=== PATIENT | female | born 1980 | race African-American/Black ===

== ENCOUNTER 2024-08-24 11:45 | Inpatient (IN) ==
--- NOTE | 2024-08-24 14:20 | XRay Report ---
XR chest 1V not portable CLINICAL HISTORY: Chest pain, nonspecific COMPARISON STUDY: 08/09/2024 FINDINGS: Heart size and pulmonary vasculature are normal. There is interval opacity at the left base with obscuration of the left hemidiaphragm. No pneumothorax. IMPRESSION: Left lung base opacity could represent atelectasis, pneumonia, or small pleural effusion . ACT 112: Negative or not required by law. Electronically signed by: Jabier Galicia M.D. 08/24/2024 2:19 PM
[2024-08-24 14:22] LABS: Basophils # (auto) 0.04 K/uL (0.00-0.20); Basophils % (auto) 0.2 %; Eosinophils % (auto) 0.6 %; Hematocrit (blood only) 29.1 % (37.0-47.0); Hemoglobin 8.5 g/dl (12.0-16.0); Immature Granulocytes # (auto) 0.09 K/uL (0.01-0.20); Immature Granulocytes % (auto) 0.5 %; Lymphocytes # (auto) 2.27 K/uL (1.20-3.40); Lymphocytes % (auto) 12.6 %; Mean Corpuscular Hemoglobin 22.9 pg (25.0-34.0); Mean Corpuscular Hgb Conc 29.2 g/dL (32.0-36.0); Mean Corpuscular Volume 78.4 fL (80.0-100.0); Mean Platelet Volume 8.5 fL (9.4-12.4); Monocytes # (auto) 1.11 K/uL (0.11-0.59); Monocytes % (auto) 6.1 %; Neutrophils # (auto) 14.45 K/uL (1.40-6.50); Platelet Count 475 K/uL (130-400); RDW Coefficient of Variation 21.4 % (11.5-14.5); RDW Standard Deviation 60.9 fL (36.4-46.3); Red Blood Count 3.71 M/uL (4.20-5.40); White Blood Count 18.06 K/ul (4.8-10.8)
--- NOTE | 2024-08-24 14:28 | Emergency Department Note ---
Impression & Plan Left lower lobe pneumonia, Anemia, Acute dyspnea ED Provider Note NAME: ANNE MARIE JONES AGE: 44 SEX: F : 1980 ARRIVES VIA: Ambulance INFORMANT: Patient, son, Valeriy ED PROVIDER(S): Michael Garcia MD CHIEF COMPLAINT: Shortness of breath, outpatient referral, flulike symptoms MEDICAL DECISION MAKING: Patient presents for the above. IV was established and blood work was obtained along with EKG troponin and x-ray. Patient's x-ray with left lower lobe pneumonia white count of 18. Patient was started on Zosyn and CT angiography performed in light of the patient's Norethin 100 and use and shortness of breath with tachypnea and tachycardia. Patient did have blood cultures obtained along with a lactate. IV fluids ordered. Patient CT angiography of the chest does not show evidence of obvious PE. I did [place] with the patient's outpatient provider who she saw today. He reported no hypoxia but the patient was very tachypneic. Given the patient's after mentioned symptoms with associated anemia likely complicates her shortness of breath and the fact that she has had symptoms for 2 weeks without treatment to believe the patient would benefit from inpatient treatment in light of the patient's tachypnea tachycardia and overall symptoms. Patient was informed the findings and recommendations and was agreeable plan of care. I did speak the on-call hospital service Dr. Cordoba and the patient was admitted to the medicine service. Lactate normal. Discussion w/ other healthcare providers: Valeriy Elizondo, outpatient medicine service Dr. Cordoba inpatient medicine service Prior /Outside records reviewed: I reviewed part of a primary care visit from Valeriy Rob or from earlier today. Patient with known history of DUB alpha thalassemia cough and dyspnea. Patient presenting with reported flulike symptoms. No reported hypoxia but was reportedly tachypneic with elevated heart rate. I reviewed part of a hematology oncology note from Dr. Rolon from December 2023. Patient with known history of microcytic anemia likely multifactorial secondary to alpha thalassemia and iron deficiency. Hemoglobin of 8.4 from October 2023. Differential diagnosis: Reactive airway disease, pneumonia, pneumothorax, COPD, CHF, ACS, pulmonary embolism, musculoskeletal, GERD as well as other pathologies were considered. Diagnostics, as interpreted by me: ECG: Sinus tachycardia, rate of 113, normal intervals, normal axis T wave version lead III as well as in V3. No obvious STEMI. Possible slight depressions V3 and V4. Cardiac monitoring: An order was placed for continuous cardiac monitoring. The monitor shows a rate of 112 with tachycardic and regular rhythm. Patient was placed on pulse oximetry Medical decision rules: none Imaging studies: I informally interpreted the patient's chest x-ray with left lower lobe opacity with formal report to follow. HPI: Patient presents due to concern for worsening shortness of breath. Patient reports that this began after having a blood transfusion and iron infusion completed about 2 weeks prior. The patient describes which she states "or flulike symptoms." Patient states that she had some bodyaches and some cough. Cough has been productive with sputum. Non-smoker. Patient states that she has had issues with vaginal bleeding. Patient states that she is on a medication to try to help stop that. Review of the patient's home medications show the patient is on orphenadrine. Patient states that she has been on that chronically. No current vaginal bleeding at this time. Patient denies any history of DVT or PE. No leg swelling or calf pain. No recent surgeries procedures hospitalizations or prolonged car plane travel. Patient states that she is quite thirsty. Patient was seen in clinic today and referred here for further evaluation and treatment due to increase in respiratory rate. Patient thinks that she may have been hypoxic. Patient was placed on nasal cannula in the clinic and states that this did improve her symptoms. PAST MEDICAL HISTORY: See Below PAST SURGICAL HISTORY: See Below SOCIAL HISTORY: See Below HOME MEDICATIONS: See Below ALLERGIES: See Below VITALS: See Below PHYSICAL EXAMINATION: GENERAL: NAD, non-toxic. EYE EXAM: Normal conjunctiva. PERRL, no anisocoria and EOM's grossly intact w/o pain. OROPHARYNX: Moist mucus membranes, grossly normal dentition. NECK: Trachea midline, no stridor. Supple, no nuchal rigidity, no adenopathy, non-tender. No signs of meningismus. FROM of the neck with good chin to chest and neck extension. LUNGS: Diminished sounds left base. Mild tachypnea. HEART: Tachycardic and regular, no MRG. ABDOMEN: Abdomen soft, non-tender, no masses, no rebound or guarding. BACK: No CVA TTP. SKIN: No rashes and no bruising. UPPER EXTREMITIES: Upper extremities are grossly normal. LOWER EXTREMITIES: Grossly normal, no edema. Negative Homans' sign bilaterally. NEURO EXAM: A&O x3, cranial nerves II-XII grossly intact, normal speech, moves all 4 extremities. Past Med/Surg History Problem List (Updated 08/25/24 @ 08:27 by Michael Garcia MD) Acute dyspnea (Acute) Left lower lobe pneumonia (Acute) Palpitations Obesity Axillary hidradenitis suppurativa Iron deficiency anemia (Acute) Type 2 diabetes mellitus Anemia (Acute) Heavy menses Medical History (Updated 08/25/24 @ 08:27 by Michael Garcia MD) Alpha thalassemia Dysfunctional uterine bleeding Surgical History H/O: H/O umbilical hernia repair Family History Grandmother (Maternal) Breast cancer Father Myocardial infarction Denies family history of Ovarian cancer Prostate cancer Colorectal cancer Social History Smoking Status: Never smoker Second Hand Exposure: No; Hx Alcohol Use: No Hx Substance Use: No Preferred Language: Irish Mask Design Engineer Required: No Beliefs That Will Affect Care: None marital status: Single Current Living Situation: Family current occupational status: employed How many Children do You have: 3 How many Children do You have Comment: plus foster child Feels Safe at Home: Yes Safety Concerns: Feels Safe At This Time Childhood Exposure to Second-Hand Smoke: No caffeine: Yes Dental Care, Regularly: Yes Seatbelt Use: always Assistive Devices: None Allergies Allergies Allergy/AdvReac Type Severity Reaction Status Date / Time morphine Allergy Mild Shakiness Verified 08/24/24 09:55 Home Meds Home Medications Medication Instructions Recorded Confirmed iron,carbonyl 65 mg-vitamin C 125 1 tab PO DAILY 08/09/24 08/24/24 mg tablet,delayed release (Vitron-C) Previous Rx's Medication Instructions Recorded blood-glucose meter,continuous #1 ea 12/23/23 (Dexcom G6 Bi Data Modeler) blood-glucose transmitter (Dexcom #1 ea 12/23/23 G6 Transmitter device) blood-glucose sensor (Dexcom G6 #3 ea 02/04/24 Sensor device) metformin 500 mg tablet,extended 1,000 mg (2 x 500 mg) PO BID #180 07/04/24 release 24 hr tabs norethindrone acetate 5 mg tablet 5 mg PO DAILY #90 tabs 08/21/24 Results & Data (ED) Vital Signs Vital Signs - 24 hr 08/24/24 11:50 08/24/24 12:59 08/24/24 13:01 Temperature 36.8 C Temperature Source Oral Pulse Rate 122 H Respiratory Rate 20 Respiratory Effort / Characteristics Non-Labored Spontaneous Respiratory Depth Normal Blood Pressure 136/76 Blood Pressure Mean 96 Pulse Oximetry 100 97 97 Oxygen Delivery Method Room Air Nasal Cannula Room Air Oxygen Flow Rate 2 Sepsis Recent Fever Within 48 Hours No Sepsis New/Unexplained Change in Mental Status N/A Sepsis Action Taken by Nursing No Action Required Oxygen Flow Rate - Titration 0 Pulse Oximetry Post Tiitration 97 08/24/24 16:42 Temperature Temperature Source Pulse Rate 107 H Respiratory Rate Respiratory Effort / Characteristics Respiratory Depth Blood Pressure Blood Pressure Mean Pulse Oximetry Oxygen Delivery Method Oxygen Flow Rate Sepsis Recent Fever Within 48 Hours Sepsis New/Unexplained Change in Mental Status Sepsis Action Taken by Nursing Oxygen Flow Rate - Titration Pulse Oximetry Post Tiitration Home Medications Current Medication List: was personally reviewed by me Laboratory Data Attestation: I reviewed the patient's lab results. 08/24/24 13:02 08/24/24 13:02 Lab Results 08/24/24 08/24/24 08/24/24 Range/Units 13:02 14:21 15:27 WBC 18.06 H (4.8-10.8) K/ul RBC 3.71 L (4.20-5.40) M/uL Hgb 8.5 L (12.0-16.0) g/dl Hct 29.1 L (37.0-47.0) % MCV 78.4 L (80.0-100.0) fL MCH 22.9 L (25.0-34.0) pg MCHC 29.2 L (32.0-36.0) g/dL RDW Std Deviation 60.9 H (36.4-46.3) fL RDW Coeff of Kamla 21.4 H (11.5-14.5) % Plt Count 475 H (130-400) K/uL MPV 8.5 L (9.4-12.4) fL Immature Gran % (Auto) 0.5 % Neut % (Auto) 80.0 % Lymph % (Auto) 12.6 % Rapides % (Auto) 6.1 % Eos % (Auto) 0.6 % Baso % (Auto) 0.2 % Neut # (Auto) 14.45 H (1.40-6.50) K/uL Lymph # (Auto) 2.27 (1.20-3.40) K/uL Rapides # (Auto) 1.11 H (0.11-0.59) K/uL Eos # (Auto) 0.10 (0.00-0.50) K/uL Baso # (Auto) 0.04 (0.00-0.20) K/uL Immature Gran # (Auto) 0.09 (0.01-0.20) K/uL Hypochromasia Present Anisocytosis Present PT Cancelled 11.5 INR Cancelled 1.1 APTT Cancelled 29 PTT Ratio Cancelled 1.1 Sodium 140 (136-145) mmol/L Potassium 3.6 (3.5-5.1) mmol/L Chloride 105 (98-107) mmol/L Carbon Dioxide 26 (21-32) mmol/L Anion Gap 9 (3-11) BUN 10 (6-23) mg/dl Creatinine 0.72 (0.6-1.2) mg/dl Est Cr Clr Drug Dosing Not Reportable eGFR 105.67 BUN/Creatinine Ratio 13.9 (10-20) Glucose 121 H (70-99(Fasting)) mg/dl POC Glucose 111 H (70-99) mg/dl Lactate 1.3 (0.4-2.0) mmol/L Calcium 9.3 (8.6-10.3) mg/dl Total Bilirubin 0.8 (0.2-1.0) mg/dl AST 9 L (13-39) U/L ALT 9 (7-52) U/L Alkaline Phosphatase 73 (34-104) U/L Troponin I High Sens 6.6 (0-14) pg/ml Total Protein 8.1 (6.0-8.3) gm/dl Albumin 3.8 (3.4-5.0) gm/dl Globulin 4.3 H (2.5-4.0) gm/dl Albumin/Globulin Ratio 0.9 (0.9-2) HCG, Qual (Negative) Adenovirus (PCR) Not Detected (NotDetected) B. pertussis DNA (PCR) Not Detected (NotDetected) B.parapertussis DNA PCR Not Detected (NotDetected) C. pneumoniae DNA (PCR) Not Detected (NotDetected) Coronavirus OC43 (PCR) Not Detected (NotDetected) Coronavirus HKU1 (PCR) Not Detected (NotDetected) Coronavirus 229E (PCR) Not Detected (NotDetected) SARS-CoV-2 (PCR) Not Detected (NotDetected) Coronavirus NL63 (PCR) Not Detected (NotDetected) Human Metapneumovir PCR Not Detected (NotDetected) Influenza Type A (PCR) Not Detected (NotDetected) Influenza Type B (PCR) Not Detected (NotDetected) M. pneumoniae (PCR) Not Detected (NotDetected) Parainfluenza 1 (PCR) Not Detected (NotDetected) Parainfluenza 2 (PCR) Not Detected (NotDetected) Parainfluenza 3 (PCR) Not Detected (NotDetected) Parainfluenza 4 (PCR) Not Detected (NotDetected) RSV (PCR) Not Detected (NotDetected) Entero/Rhino (PCR) Not Detected (NotDetected) 08/24/24 Range/Units 15:28 WBC (4.8-10.8) K/ul RBC (4.20-5.40) M/uL Hgb (12.0-16.0) g/dl Hct (37.0-47.0) % MCV (80.0-100.0) fL MCH (25.0-34.0) pg MCHC (32.0-36.0) g/dL RDW Std Deviation (36.4-46.3) fL RDW Coeff of Kamla (11.5-14.5) % Plt Count (130-400) K/uL MPV (9.4-12.4) fL Immature Gran % (Auto) % Neut % (Auto) % Lymph % (Auto) % Rapides % (Auto) % Eos % (Auto) % Baso % (Auto) % Neut # (Auto) (1.40-6.50) K/uL Lymph # (Auto) (1.20-3.40) K/uL [place]ides # (Auto) (0.11-0.59) K/uL Eos # (Auto) (0.00-0.50) K/uL Baso # (Auto) (0.00-0.20) K/uL Immature Gran # (Auto) (0.01-0.20) K/uL Hypochromasia Anisocytosis PT INR APTT PTT Ratio Sodium (136-145) mmol/L Potassium (3.5-5.1) mmol/L Chloride (98-107) mmol/L Carbon Dioxide (21-32) mmol/L Anion Gap (3-11) BUN (6-23) mg/dl Creatinine (0.6-1.2) mg/dl Est Cr Clr Drug Dosing eGFR BUN/Creatinine Ratio (10-20) Glucose (70-99(Fasting)) mg/dl POC Glucose (70-99) mg/dl Lactate (0.4-2.0) mmol/L Calcium (8.6-10.3) mg/dl Total Bilirubin (0.2-1.0) mg/dl AST (13-39) U/L ALT (7-52) U/L Alkaline Phosphatase (34-104) U/L Troponin I High Sens (0-14) pg/ml Total Protein (6.0-8.3) gm/dl Albumin (3.4-5.0) gm/dl Globulin (2.5-4.0) gm/dl Albumin/Globulin Ratio (0.9-2) HCG, Qual Negative (Negative) Adenovirus (PCR) (NotDetected) B. pertussis DNA (PCR) (NotDetected) B.parapertussis DNA PCR (NotDetected) C. pneumoniae DNA (PCR) (NotDetected) Coronavirus OC43 (PCR) (NotDetected) Coronavirus HKU1 (PCR) (NotDetected) Coronavirus 229E (PCR) (NotDetected) SARS-CoV-2 (PCR) (NotDetected) Coronavirus NL63 (PCR) (NotDetected) Human Metapneumovir PCR (NotDetected) Influenza Type A (PCR) (NotDetected) Influenza Type B (PCR) (NotDetected) M. pneumoniae (PCR) (NotDetected) Parainfluenza 1 (PCR) (NotDetected) Parainfluenza 2 (PCR) (NotDetected) Parainfluenza 3 (PCR) (NotDetected) Parainfluenza 4 (PCR) (NotDetected) RSV (PCR) (NotDetected) Entero/Rhino (PCR) (NotDetected) Administered Medications Acetaminophen (Acetaminophen 325 Mg Tab) 650 mg PO Q4H PRN PRN Reason: Pain or Fever Stop: 09/23/24 20:10 Last Admin: 08/24/24 23:00 Dose: 650 mg Documented By: MAYRA Cefepime HCl (Maxipime 2000mg) 2,000 mg in 20 mls @ 5 mls/min IV Q8H [facility]; Protocol Stop: 08/30/24 01:59 Last Admin: 08/25/24 02:05 Dose: 5 mls/min Documented By: CTK Insulin Aspart (Insulin Aspart Per Unit Charge) 0 units SC ACHS [facility] Stop: 09/23/24 20:59 Last Admin: 08/25/24 07:40 Dose: Not Given Documented By: Admin: 08/24/24 22:25 Dose: Not Given Documented By: QGV Co-signed By: MED Norethindrone (Norethindrone 5 Mg Tab) 5 mg PO DAILY [facility] Stop: 09/23/24 20:10 Last Admin: 08/24/24 22:17 Dose: 5 mg Documented By: QGV Discontinued Medications Piperacillin Sod/Tazobactam Sod (Zosyn) 4.5 gm in 100 mls @ 200 mls/hr IV NOW ONE; Protocol Stop: 08/24/24 15:08 Last Infusion: 08/24/24 16:54 Dose: Infused Documented By: Admin: 08/24/24 15:53 Dose: 200 mls/hr Documented By: QGV Sodium Chloride (Nss) 1,000 mls @ 999 mls/hr IV .Q1H1M ONE Stop: 08/24/24 15:39 Last Infusion: 08/24/24 16:54 Dose: Infused Documented By: Admin: 08/24/24 15:53 Dose: 999 mls/hr Documented By: QGV Sodium Chloride (Nss) 1,000 mls @ 999 mls/hr IV .Q1H1M ONE Stop: 08/24/24 16:49 Last Admin: 08/24/24 19:43 Dose: Not Given Documented By: QGV Vancomycin HCl 2,000 mg/ (Sodium Chloride) 540 mls @ 200 mls/hr IV NOW STA Stop: 08/24/24 21:09 Last Infusion: 08/24/24 22:58 Dose: Infused Documented By: Admin: 08/24/24 19:43 Dose: 200 mls/hr Documented By: QGV Ioversol (Optiray 320 125ml) 118 ml IV ONCE ONE Stop: 08/24/24 15:13 Last Admin: 08/24/24 15:12 Dose: 118 ml Documented By: KSF Oxycodone HCl (Oxycodone Hcl Ir 5 Mg Tab (Immediate Release)) 5 mg PO NOW STA Stop: 08/24/24 18:10 Last Admin: 08/24/24 18:35 Dose: 5 mg Documented By: QGV Imaging Data Radiologist's Impression: Chest X-Ray 08/24/24 11:57 XR chest 1V not portable CLINICAL HISTORY: Chest pain, nonspecific COMPARISON STUDY: 08/09/2024 FINDINGS: Heart size and pulmonary vasculature are normal. There is interval opacity at the left base with obscuration of the left hemidiaphragm. No pneumothorax. IMPRESSION: Left lung base opacity could represent atelectasis, pneumonia, or small pleural effusion. ACT 112: Negative or not required by law. Electronically signed by: Jabier Galicia M.D. 08/24/2024 2:19 PM Chest X-Ray 08/24/24 11:57 XR chest 1V not portable CLINICAL HISTORY: Chest pain, nonspecific COMPARISON STUDY: 08/09/2024 FINDINGS: Heart size and pulmonary vasculature are normal. There is interval opacity at the left base with obscuration of the left hemidiaphragm. No pneumothorax. IMPRESSION: Left lung base opacity could represent atelectasis, pneumonia, or small pleural effusion. ACT 112: Negative or not required by law. Electronically signed by: Jabier Galicia M.D. 08/24/2024 2:19 PM Chest CTA 08/24/24 14:39 CT angio chest PE protocol CT DOSE: 1048.31 mGy.cm HISTORY: PE. TECHNIQUE: Multiple CTA images of the chest were obtained after the intravenous administration of 120 ml Optiray. Coronal and sagittal MIPS were obtained from the axial data set and were submitted for review. All measurements were obtained according to NASCET criteria. A dose lowering technique was utilized adhering to the principles of ALARA. COMPARISON STUDY: 10/18/2023 FINDINGS: There is consolidation with air bronchograms throughout the majority of the left lower lung lobe. No other consolidation or pleural effusion. No pneumothorax. No enlarged adenopathy. No pericardial effusion. Contrast bolus is suboptimal limiting evaluation of the distal subsegmental pulmonary arterial branches. There is spray artifact. No pulmonary embolism seen. No thoracic aortic dissection or aneurysm. There are mild thoracic spine degenerative changes. No acute osseous findings. IMPRESSION: 1. No pulmonary embolism seen. 2. Dense pneumonia throughout the majority of the left lower lung lobe. Recommend2 follow-up chest CT in 3 months to make sure that this completely resolves without underlying pulmonary nodule. ACT 112: Negative or not required by law. The above report was generated using voice recognition software. It may contain grammatical, syntax or spelling errors. Electronically signed by: Jabier Galicia M.D. 08/24/2024 3:34 PM Discharge Plan Visit Data Chief Complaint: Shortness of Breath/Dyspnea ED Provider: Michael Garcia Discharge Problem: Left lower lobe pneumonia, Anemia, Acute dyspnea Patient Disposition: Admitted As Inpatient Discharge Instructions Interventions: ED Discharge Assessment Last Done: 08/24/24 20:11 Discharge Problem: Left lower lobe pneumonia Qualifiers: Pneumonia type: due to unspecified organism Qualified Code(s): J18.9 - Pneumonia, unspecified organism Anemia Qualifiers: Anemia type: unspecified type Qualified Code(s): D64.9 - Anemia, unspecified
[2024-08-24 14:36] LABS: Alanine Aminotransferase 9 U/L (7-52); Albumin Globulin Ratio 0.9 (0.9-2); Albumin Level 3.8 gm/dl (3.4-5.0); Alkaline Phosphatase 73 U/L (34-104); Anion Gap 9 (3-11); Aspartate Aminotransferase 9 U/L (13-39); BUN Creatinine Ratio 13.9 (10-20); Bilirubin,Total 0.8 mg/dl (0.2-1.0); Blood Urea Nitrogen 10 mg/dl (6-23); Calcium 9.3 mg/dl (8.6-10.3); Carbon Dioxide 26 mmol/L (21-32); Chloride 105 mmol/L (98-107); Globulin 4.3 gm/dl (2.5-4.0); Glucose 121 mg/dl (70-99(Fasting)); Potassium 3.6 mmol/L (3.5-5.1); Sodium 140 mmol/L (136-145); Total Protein 8.1 gm/dl (6.0-8.3)
[2024-08-24 14:40] LABS: Adenovirus PCR Not Detected (NotDetected); Bordetella parapertussis PCR Not Detected (NotDetected); Bordetella pertussis PCR Not Detected (NotDetected); Chlamydia pneumoniae PCR Not Detected (NotDetected); Coronavirus 229E PCR Not Detected (NotDetected); Coronavirus CoV-2 (COVID19)PCR Not Detected (NotDetected); Coronavirus HKU1 PCR Not Detected (NotDetected); Coronavirus NL63 PCR Not Detected (NotDetected); Coronavirus OC43PCR Not Detected (NotDetected); Human Metapneumovirus PCR Not Detected (NotDetected); Influenza A PCR Not Detected (NotDetected); Influenza B PCR Not Detected (NotDetected); Mycoplasma pneumoniae PCR Not Detected (NotDetected); Parainfluenza Virus 1 PCR Not Detected (NotDetected); Parainfluenza Virus 2 PCR Not Detected (NotDetected); Parainfluenza Virus 3 PCR Not Detected (NotDetected); Parainfluenza Virus 4 PCR Not Detected (NotDetected); Respiratory Syncytial VirusPCR Not Detected (NotDetected); Rhinovirus/Enterovirus PCR Not Detected (NotDetected)
[2024-08-24 14:43] LABS: Troponin I High Sensitivity 6.6 pg/ml (0-14)
[2024-08-24 15:06] LABS: Anisocytosis Present; Hypochromasia Present
[2024-08-24] MEDS: OPTIRAY 320 125ml IV ONE (15:12)
--- NOTE | 2024-08-24 15:36 | CT Scan Report ---
CT angio chest PE protocol CT DOSE: 1048.31 mGy.cm HISTORY: PE. TECHNIQUE: Multiple CTA images of the chest were obtained after the intravenous administration of 120 ml Optiray. Coronal and sagittal MIPS were obtained from the axial data set and were submitted for review. All measurements were obtained according to NASCET criteria. A dose lowering technique was u tilized adhering to the principles of ALARA. COMPARISON STUDY: 10/18/2023 FINDINGS: There is consolidation with air bronchograms throughout the majority of the left lower lung lobe. No other consolidation or pleural effusion. No pneumothorax. No enlarged adenopathy. No perica rdial effusion. Contrast bolus is suboptimal limiting evaluation of the distal subsegmental pulmonary arterial branches. There is spray artifact. No pulmonary embolism seen. No thoracic aortic dissectio n or aneurysm. There are mild thoracic spine degenerative changes. No acute osseous findings. IMPRESSION: 1. No pulmonary embolism seen. 2. Dense pneumonia throughout the majority of the left lower lung lobe. Recommend2 follow-up chest CT in 3 months to make sure that this completely resolves without underlying pulmonary nodule. ACT 112: Negative or not required by law. The above report was generated using voice recognition software. It may contain grammatical, syntax o r spelling errors. Electronically signed by: Jabier Galicia M.D. 08/24/2024 3:34 PM
[2024-08-24] MEDS: SODIUM CHLORIDE 0.9% 1,000 ML IV ONE ×2 (15:53→19:43)
[2024-08-24] MEDS: PIPERACILLIN/TAZOBACTAM 4.5 GM/100 ML BAG IV ONE (15:53)
[2024-08-24 16:06] LABS: INR 1.1 (0.9-1.1); Partial Thromboplastin Ratio 1.1; Partial Thromboplastin Time 29 Seconds (21-31); Prothrombin Time 11.5 Seconds (9.0-12.0)
[2024-08-24 16:18] LABS: Pregnancy Test, Serum Negative (Negative)
--- NOTE | 2024-08-24 16:48 | History & Physical Report ---
Date of Service August 24, 2024 Assessment & Plan (1) Left lower lobe pneumonia: (2) Anemia: (3) Type 2 diabetes mellitus: Adal Goncalves is a 44-year-old female with PMH of iron deficiency anemia, T2DM, DUB, and alpha thalassemia. She presented via EMS on 08/24 for fever, chills, SOB, and muscle soreness x 1.5 week. Patient reports that her symptoms started shortly after she received a blood and iron transfusion 2 weeks ago. Approximately 2 days after the infusion, she developed flulike symptoms which included productive cough, chills, and fevers at home. She endorses SOB when she walks upstairs, or whenever she develops coughing fits. #Left lower lobe pneumonia Chest CTA did not reveal pulmonary embolism, but did reveal dense LLL pneumonia Leukocytosis at 18.06 Blood cultures drawn in the ED Sputum culture ordered, pending MRSA swab ordered, pending Cefepime 2000 mg IV q8h Vancomycin IV q24h #Iron deficiency anemia/DUB Hgb 8.5 on arrival; no change from 08/09 MCV 78.4 on arrival Patient received IV iron + blood transfusion 2 weeks ago Patient reports that her DU B resolved around a week ago with her control use No signs of active bleed on clinical exam; patient denies blood in her urine/stool Given low Hgb, will defer chemical DVT PPx on admission Trend H&H #T2DM Last A1c at 7.8% on 06/03/2023 Hold metformin Loose SSI with target BSG range 110-140, CH 50, carb ratio 15 T2DM diet BSG ACHS Adjust regimen as needed Follow a.m. A1c Disposition: Admit to [facility] telemetry Full code T2DM VTE PPx: SCDs History of Present Illness Chief Complaint: SOB/Dyspnea, productive cough Primary Care Provider: Amirah Vaughan DO Sacha is a 44-year-old female with PMH of iron deficiency anemia, T2DM, DUB, and alpha thalassemia. She presented via EMS on 08/24 for fever, chills, SOB, and muscle soreness x 1.5 week. Patient reports that her symptoms started shortly after she received a blood and iron transfusion 2 weeks ago. Approximately 2 days after the infusion, she developed flulike symptoms which included productive cough, chills, and fevers at home. She endorses SOB when she walks upstairs, or whenever she develops coughing fits. Patient has been around a lot of sick contacts recently, she works at a [employer]. She has been taking Mucinex at home for her symptoms. She does not normally require supplemental oxygen at baseline; no CPAP at night. Additionally, patient does have a history of NATTY and alpha thalassemia, and she was having abnormal uterine bleeding from around July 08 to approximately last week. She takes control to stop the bleeding. Patient denies smoking, tobacco use, recent alcohol use. Patient is tachycardic at 107 bpm at time of admission; vitals otherwise stable. ED course: Zosyn 4.5 g IV NSS 1000 mL IV x 2 ROS: Patient endorses fever, chills, headache, hemoptysis, productive cough (yellow sputum production), pleuritic CP mainly on the left side, occasional left shoulder pain (stabbing pain that radiates up from her left rib cage), and abdominal cramping from coughing so much. Patient denies chest pain at present, N/V/D, changes in urinary or bowel habits, blood in her urine, bright red blood in her stool, or melena (note patient does take iron tablets, but does not believe she has had any dark stool recently). Allergies Allergy/AdvReac Type Severity Reaction Status Date / Time morphine Allergy Mild Shakiness Verified 08/24/24 09:55 Home Medications Medication Instructions Recorded Confirmed Type blood-glucose meter,continuous #1 ea 12/23/23 08/24/24 Rx (Dexcom G6 Levelman) blood-glucose transmitter (Dexcom #1 ea 12/23/23 08/24/24 Rx G6 Transmitter device) blood-glucose sensor (Dexcom G6 #3 ea 02/04/24 08/24/24 Rx Sensor device) metformin 500 mg tablet,extended 1,000 mg (2 x 500 mg) PO BID #180 07/04/24 08/24/24 Rx release 24 hr tabs iron,carbonyl 65 mg-vitamin C 125 1 tab PO DAILY 08/09/24 08/24/24 History mg tablet,delayed release (Vitron-C) tranexamic acid 650 mg tablet 1,300 mg (2 x 650 mg) PO Q8H PRN 08/10/24 08/24/24 Rx bleeding 3 days #27 tabs norethindrone acetate 5 mg tablet 5 mg PO DAILY #90 tabs 02/24/25 02/27/25 Rx Past Med/Surg History Problem List (Updated 08/24/24 @ 17:41 by Felipe Osuna PA-C) Left lower lobe pneumonia Dysfunctional uterine bleeding (Acute) Symptomatic anemia (Acute) Palpitations Obesity Axillary hidradenitis suppurativa Iron deficiency anemia (Acute) Type 2 diabetes mellitus Anemia (Acute) Heavy menses Surgical History H/O: H/O umbilical hernia repair Family History Grandmother (Maternal) Breast cancer Father Myocardial infarction Denies family history of Ovarian cancer Prostate cancer Colorectal cancer Social History Smoking Status: Never smoker Second Hand Exposure: No; Hx Alcohol Use: No Hx Substance Use: No Preferred Language: Romanian marital status: Single Current Living Situation: Family current occupational status: employed How many Children do You have: 3 How many Children do You have Comment: plus foster child Feels Safe at Home: Yes Childhood Exposure to Second-Hand Smoke: No caffeine: Yes Dental Care, Regularly: Yes Seatbelt Use: always Review of Systems Review of Systems: See HPI above Physical Exam Physical Exam: General: no acute distress; son at bedside; non-toxic appearing; cooperative; SpO2 97% on 2L NC HEENT: normocephalic, atraumatic; no scleral icterus; PERRLA; vision and hearing intact Neck: supple; no lymphadenopathy; trachea midline Skin: warm, dry without signs of tenting; no cyanosis; no rashes, bruising, l esions, or erythema noted CV: chest wall NTP; RR, mildly tachycardic at 107 bpm; S1/S2 normal; no murmurs/rubs/gallops; pulses intact and symmetric at radial, DP, and PT Lungs: no acute respiratory distress; productive cough; symmetrical chest wall expansion; diminished breath sounds in the lower left lung field ABD: Soft, NTP; BS present; no rebound/guarding; no distention MSK: no tics or fasciculations; no edema noted in the LEs b/l, nonerythematous Neuro: A&Ox3; normal mood and affect; fluent speech; no focal deficits; sensation grossly intact in the LEs b/l Results & Data Results & Data Vital Signs (Past 12 Hours) Vital Signs Temp Pulse Resp BP Pulse Ox O2 Del Method O2 Flow Rate 08/24/24 16:42 107 H 08/24/24 13:01 97 Room Air 08/24/24 12:59 97 Nasal Cannula 2 08/24/24 11:50 36.8 C 122 H 20 136/76 100 Room Air Laboratory Results Abnormal lab results 08/24/24 08/24/24 Range/Units 13:02 14:21 WBC 18.06 H (4.8-10.8) K/ul RBC 3.71 L (4.20-5.40) M/uL Hgb 8.5 L (12.0-16.0) g/dl Hct 29.1 L (37.0-47.0) % MCV 78.4 L (80.0-100.0) fL MCH 22.9 L (25.0-34.0) pg MCHC 29.2 L (32.0-36.0) g/dL RDW Std Deviation 60.9 H (36.4-46.3) fL RDW Coeff of Kamla 21.4 H (11.5-14.5) % Plt Count 475 H (130-400) K/uL MPV 8.5 L (9.4-12.4) fL Neut # (Auto) 14.45 H (1.40-6.50) K/uL Giles # (Auto) 1.11 H (0.11-0.59) K/uL Glucose 121 H (70-99(Fasting)) mg/dl POC Glucose 111 H (70-99) mg/dl AST 9 L (13-39) U/L Globulin 4.3 H (2.5-4.0) gm/dl Diagnostic Findings Chest X-Ray 08/24/24 11:57 XR chest 1V not portable CLINICAL HISTORY: Chest pain, nonspecific COMPARISON STUDY: 08/09/2024 FINDINGS: Heart size and pulmonary vasculature are normal. There is interval opacity at the left base with obscuration of the left hemidiaphragm. No pneumothorax. IMPRESSION: Left lung base opacity could represent atelectasis, pneumonia, or small pleural effusion. ACT 112: Negative or not required by law. Electronically signed by: Jabier Galicia M.D. 08/24/2024 2:19 PM Chest CTA 08/24/24 14:39 CT angio chest PE protocol CT DOSE: 1048.31 mGy.cm HISTORY: PE. TECHNIQUE: Multiple CTA images of the chest were obtained after the intravenous administration of 120 ml Optiray. Coronal and sagittal MIPS were obtained from the axial data set and were submitted for review. All measurements were obtained according to NASCET criteria. A dose lowering technique was utilized adhering to the principles of ALARA. COMPARISON STUDY: 10/18/2023 FINDINGS: There is consolidation with air bronchograms throughout the majority of the left lower lung lobe. No other consolidation or pleural effusion. No pneumothorax. No enlarged adenopathy. No pericardial effusion. Contrast bolus is suboptimal limiting evaluation of the distal subsegmental pulmonary arterial branches. There is spray artifact. No pulmonary embolism seen. No thoracic aortic dissection or aneurysm. There are mild thoracic spine degenerative changes. No acute osseous findings. IMPRESSION: 1. No pulmonary embolism seen. 2. Dense pneumonia throughout the majority of the left lower lung lobe. Recommend2 follow-up chest CT in 3 months to make sure that this completely resolves without underlying pulmonary nodule. ACT 112: Negative or not required by law. The above report was generated using voice recognition software. It may contain grammatical, syntax or spelling errors. Electronically signed by: Jabier Galicia M.D. 08/24/2024 3:34 PM ECG Additional Comments: ECG revealed sinus cardia at 113 bpm; QTc 397 Code Status & VTE Plan Code Status Full code VTE Prophylaxis Plan VTE Prophylaxis will be ordered: Yes Supervising Physician Co-Signing Physician Notes I have personally seen, evaluated and examined the patient. I have also personally discussed the management of the patient with the resident physician/MARIELA and I agree with the exam findings documented in the history and physical examination and the documented assessment and plan unless otherwise stated below. Brief Exam: In general very pleasant 44-year-old male is alert and oriented x 3, exam she is accompanied by her son at the time my examination. Chronic complaints pleuritic left flank/chest pain. HEENT: Normocephalic/atraumatic Heart: Regular rate and rhythm no murmurs Lungs: Globally diminished left lower lung garcia with rhonchi. Abdomen: Soft nontender positive bowel sounds. No appreciable renomegaly. Extremities: Intact with no clubbing cyanosis or edema. Assessment/plan: As discussed above. Please refer to orders for further planning. PG Care Time/CCT Total # of Minutes Spent Total Time Spent with Patient: Total time spent is greater than 50% in coordination of care (as documented) at patient's floor/unit and/or counseling patient: C[place] [address] INT INP/OBS CARE 3/75MIN Patient Type Established Medical Decision Making High Complexity Diagnoses Left lower lobe pneumonia J18.9 Anemia D64.9 Type 2 diabetes mellitus E11.9
[2024-08-24] MEDS ORDERED: VANCOMYCIN CONSULT ACTIVE PRN (17:39)
[2024-08-24] MEDS ORDERED: VANCOMYCIN HCL 2,000 MG in SODIUM CHLORIDE 0.9% 500 ML IV SCH (17:45)
[2024-08-24] MEDS: oxyCODONE HCL IR 5 MG TAB (IMMEDIATE RELEASE) PO STA (18:35)
[2024-08-24] MEDS: VANCOMYCIN HCL 2,000 MG in SODIUM CHLORIDE 0.9% 500 ML IV STA (19:43)
[2024-08-24] MEDS ORDERED: DEXTROSE 50% 50 ML SYRINGE IV PRN (20:11)
[2024-08-24] MEDS ORDERED: GLUCOSE 40% GEL 15 GM TUBE PO PRN (20:11)
[2024-08-24] MEDS ORDERED: GLUCAGON FOR INJ 1 MG VIAL SQ PRN (20:11)
[2024-08-24] MEDS ORDERED: GLUCOSE 10 TAB/TUBE PO PRN (20:11)
[2024-08-24] MEDS ORDERED: CARBOHYDRATES FOR HYPOGLYCEMIA PO PRN (20:11)
[2024-08-24] MEDS: NORETHINDRONE 5 MG TAB PO SCH (22:17)
[2024-08-24] MEDS: INSULIN ASPART PER UNIT CHARGE SC SCH (22:25)
[2024-08-24] MEDS: ACETAMINOPHEN 325 MG TAB PO PRN (23:00)
[2024-08-25] MEDS: CEFEPIME 2000MG 2,000 MG/20 ML SYR IV SCH (02:05)
--- NOTE | 2024-08-25 05:53 | Electrocardiogram Report ---
Test Reason : Blood Pressure : */* mmHG Vent. Rate : 113 BPM Atrial Rate : 113 BPM P-R Int : 120 ms QRS Dur : 72 ms QT Int : 290 ms P-R-T Axes : 43 6 -14 degrees QTcB Int : 397 ms Sinus tachycardia Minimal voltage criteria for LVH, may be normal variant ( R in aVL ) Nonspecific ST and T wave abnormality Abnormal ECG When compared with ECG of 09-Aug-2024 15:59, ST now depressed in Anterior leads Nonspecific T wave abnormality now evident in Anterior leads Confirmed by Igor Nascimento ([id number]) on 08/25/2024 5:52:38 AM Referred By: Confirmed By: Igor Nascimento
[2024-08-25] MEDS: ASCORBIC ACID 500 MG TAB PO SCH (08:59)
[2024-08-25] MEDS: FERROUS SULFATE 325 MG TAB PO SCH (08:59)
[2024-08-25] MEDS: BENZONATATE 100 MG CAPSULE PO PRN (08:59)
[2024-08-25] MEDS ORDERED: NON-FORMULARY MEDICATION (Iron,Carbonyl-Vitamin C [Vitron-C] 65 mg iron- 125 mg Tablet,Del PO SCH (09:00)
[2024-08-25] MEDS: AZITHROMYCIN 250 MG TAB PO ONE (10:40)
[2024-08-25 11:52] LABS: Basophils # (auto) 0.02 K/uL (0.00-0.20); Basophils % (auto) 0.1 %; Eosinophils # (auto) 0.23 K/uL (0.00-0.50); Eosinophils % (auto) 1.6 %; Hematocrit (blood only) 28.4 % (37.0-47.0); Hemoglobin 8.3 g/dl (12.0-16.0); Immature Granulocytes % (auto) 0.7 %; Lymphocytes % (auto) 12.8 %; Mean Corpuscular Hemoglobin 23.1 pg (25.0-34.0); Mean Corpuscular Hgb Conc 29.2 g/dL (32.0-36.0); Mean Corpuscular Volume 78.9 fL (80.0-100.0); Mean Platelet Volume 8.6 fL (9.4-12.4); Monocytes # (auto) 0.71 K/uL (0.11-0.59); Neutrophils # (auto) 11.24 K/uL (1.40-6.50); Neutrophils % (auto) 79.8 %; Platelet Count 447 K/uL (130-400); RDW Coefficient of Variation 21.2 % (11.5-14.5); RDW Standard Deviation 61.4 fL (36.4-46.3)
[2024-08-25 11:58] LABS: Calcium 9.1 mg/dl (8.6-10.3); Potassium 3.7 mmol/L (3.5-5.1)
[2024-08-25 12:03] LABS: BUN Creatinine Ratio 10.5 (10-20); Creatinine Clr Calc Pharmacy 114.9 ml/min
[2024-08-25 12:30] LABS: Anisocytosis Present; Polychromasia 1+; Rouleaux 1+
[2024-08-25 13:50] LABS: Estimated Average Glucose 146 mg/dl; Hemoglobin A1C 6.7 % (4.5-5.6)
--- NOTE | 2024-08-25 18:04 | Hospitalist Progress Note ---
Date of Service August 25, 2024 Assessment & Plan (1) Left lower lobe pneumonia: (2) Anemia: (3) Type 2 diabetes mellitus: Plan This pt is a 44-year-old female with PMH of iron deficiency anemia, T2DM, DUB, and alpha thalassemia. She presented via EMS on 08/24 for fever, chills, SOB, and muscle soreness x 1.5 week. Patient reports that her symptoms started shortly after she received a blood and iron transfusion 2 weeks ago. Approximately 2 days after the infusion, she developed flulike symptoms which included productive cough, chills, and fevers at home. She endorses SOB when she walks upstairs, or whenever she develops coughing fits. Found to have a lobar PNA on chest xray and CTA Chest. Requiring 2LNC on admission and now weaned off. #Left lower lobe pneumonia/Hypoxia-with community acquired PNA but has DMII so was placed on Cefepime for Gram neg coverage.. Chest CTA did not reveal pulmonary embolism, but did reveal dense LLL pneumonia Leukocytosis at 18.06 now improving. Hypoxia now resolved at rest but remains with OLIVERA. Blood cultures pending, sputum cx collected and pending. Has some left sided pleuritic pain, declines pain meds -continue Cefepime and add azithro for atypical coverage -dc Vanco as MRSA swab neg and not high risk for MRSA -add flutter valve -continue APAP prn pain -will need repeat chest CT in 3 months to ensure resolution of PNA #Iron deficiency anemia/DUB/Alpha thalassemia-Hgb 8.5 on arrival; stable today.MCV low at 78. Patient received IV iron 2 weeks ago and recently had heavy vaginal bleeding which is now stopped after taking TXA and norethindrone. No signs of active bleed on clinical exam; patient denies blood in her urine/stool -give Venofer 300mg IV x 1 in the AM -follow CBC -follows with Hematology Dr. Davis #[id number] A1c at 7.8% on 06/03/2023 and now only 6.7%. She is declining SSI here but encouraged her to take it if glucose>200. On metformin at home but can't take yet due to CTA dye -Hold metformin -SSI if glucose>200-changed CF and deleted carb ration -pt requests regular diet-changed VTE PPx: SCDs Disposition: continued stay on telemetry Admission and Anticipated Discharge Date Admission Date: August 24, 2024 Subjective Pt reports feeling better, no longer feels like she is going to . Feels increased SOB and cough with bending over to pull up her underwear in bathroom, feel sbetter with putting on O2. No diarrhea but feels gas. Physical Exam Constitutional: WD/WN, vitals as above Respiratory: normal respiratory effort and + cough Auscultation: + diminished lung sounds (diminished breath sounds at base); no crackles, no rhonchi and no wheezes Cardiovascular: RRR, no murmur, no edema Gastrointestinal (Abdomen): normal bowel sounds, soft, nontender, no hepatosplenomegaly Psychiatric: A+Ox3, euthymic affect Results & Data Results & Data Vital Signs (Past 12 Hours) Vital Signs Temp Pulse Pulse Resp BP Pulse Ox O2 Del Method 08/25/24 16:00 36.7 C 96 H 20 149/81 H 95 Room Air 08/25/24 11:42 36.5 C 95 H 20 122/80 95 Room Air 08/25/24 09:00 98 H 08/25/24 09:00 Room Air 08/25/24 08:21 36.5 C 105 H 20 119/73 96 Room Air Laboratory Results CBC, BMP, sputum cx reviewed PG Care Time/CCT Total # of Minutes Spent Total Time Spent with Patient: Total time spent is greater than 50% in coordination of care (as documented) at patient's floor/unit and/or counseling patient: Coding Level of Care Code 35243 SUB INP/OBS CARE 3/50MIN Diagnoses Left lower lobe pneumonia J18.9 Pneumonia type: due to unspecified organism Anemia D64.9 Anemia type: unspecified type Type 2 diabetes mellitus E11.9 (1) Left lower lobe pneumonia Pneumonia type: due to unspecified organism Qualified Code(s): J18.9 - Pneumonia, unspecified organism (2) Anemia Anemia type: unspecified type Qualified Code(s): D64.9 - Anemia, unspecified
[2024-08-25] MEDS: DEXTROMETHORPHAN POLYMR COMPLX 30 MG/5 ML UDP PO PRN (19:53)
[2024-08-26 08:27] LABS: Basophils # (auto) 0.02 K/uL (0.00-0.20); Basophils % (auto) 0.2 %; Eosinophils # (auto) 0.28 K/uL (0.00-0.50); Eosinophils % (auto) 2.6 %; Hematocrit (blood only) 25.5 % (37.0-47.0); Hemoglobin 7.7 g/dl (12.0-16.0); Immature Granulocytes # (auto) 0.05 K/uL (0.01-0.20); Immature Granulocytes % (auto) 0.5 %; Lymphocytes # (auto) 2.69 K/uL (1.20-3.40); Mean Corpuscular Hemoglobin 23.4 pg (25.0-34.0); Mean Corpuscular Hgb Conc 30.2 g/dL (32.0-36.0); Mean Corpuscular Volume 77.5 fL (80.0-100.0); Mean Platelet Volume 8.2 fL (9.4-12.4); Monocytes # (auto) 0.63 K/uL (0.11-0.59); Monocytes % (auto) 5.9 %; Neutrophils # (auto) 7.07 K/uL (1.40-6.50); Neutrophils % (auto) 65.8 %; Platelet Count 456 K/uL (130-400); RDW Coefficient of Variation 21.2 % (11.5-14.5); Red Blood Count 3.29 M/uL (4.20-5.40); White Blood Count 10.74 K/ul (4.8-10.8)
[2024-08-26 08:45] LABS: Albumin Globulin Ratio 0.9 (0.9-2); Albumin Level 3.2 gm/dl (3.4-5.0); BUN Creatinine Ratio 14.1 (10-20); Bilirubin,Total 0.3 mg/dl (0.2-1.0); Calcium 8.3 mg/dl (8.6-10.3); Creatinine Clr Calc Pharmacy 154.3 ml/min; Globulin 3.5 gm/dl (2.5-4.0); Potassium 3.4 mmol/L (3.5-5.1); Total Protein 6.7 gm/dl (6.0-8.3)
--- NOTE | 2024-08-26 08:55 | Hospitalist Progress Note ---
Date of Service August 26, 2024 Assessment & Plan (1) Left lower lobe pneumonia: (2) Anemia: (3) Type 2 diabetes mellitus: Plan This pt is a 44-year-old female with PMH of iron deficiency anemia, T2DM, DUB, and alpha thalassemia. She presented via EMS on 08/24 for fever, chills, SOB, and muscle soreness x 1.5 week. Patient reports that her symptoms started shortly after she received a blood and iron transfusion 2 weeks ago. Approximately 2 days after the infusion, she developed flulike symptoms which included productive cough, chills, and fevers at home. She endorses SOB when she walks upstairs, or whenever she develops coughing fits. Found to have a lobar PNA on chest xray and CTA Chest. Requiring 2LNC on admission and now weaned off. #Left lower lobe pneumonia/Hypoxia-with community acquired PNA but has DMII so was placed on Cefepime for Gram neg coverage.. Chest CTA did not reveal pulmonary embolism, but did reveal dense LLL pneumonia Leukocytosis improving. Hypoxia now resolved, remains with OLIVERA. Blood cultures negative to date, sputum cx collected and pending. -continue Cefepime added azithro for atypical coverage -dc Vanco as MRSA swab neg and not high risk for MRSA -add flutter valve -continue APAP prn pain -will need repeat chest CT in 3 months to ensure resolution of PNA #Iron deficiency anemia/DUB/Alpha thalassemia-Hgb 8.5 on arrival; stable today.MCV low at 78. Patient received IV iron 2 weeks ago and recently had heavy vaginal bleeding which is now stopped after taking TXA and norethindrone. No signs of active bleed on clinical exam; patient denies blood in her urine/stool -give Venofer 300mg IV x 1 in the AM -follow CBC -follows with Hematology Dr. Davis #[id number] A1c at 7.8% on 06/03/2023 and now only 6.7%. She is declining SSI here but encouraged her to take it if glucose>200. On metformin at home but can't take yet due to CTA dye -Hold metformin -SSI if glucose>200-changed CF and deleted carb ration -pt requests regular diet-changed VTE PPx: SCDs Disposition: continued stay on telemetry Admission and Anticipated Discharge Date Admission Date: August 24, 2024 Subjective pt continues to improve, still dyspnea and coughing paroxysms with exertion, mucus production is lessening Physical Exam Physical Exam: pt has diminished breath sounds at both bases, absent breath sounds at left base (Imaging has dense consolidation) cardiac exam is regular Results & Data Results & Data Vital Signs (Past 12 Hours) Vital Signs Temp Pulse Pulse Resp BP Pulse Ox O2 Del Method 08/26/24 07:40 101 H 08/26/24 07:34 97.7 F 101 H 21 130/84 95 Room Air 08/26/24 02:01 103 H 132/83 95 Room Air Laboratory Results review cbc with chronic anemia PG Care Time/CCT Total # of Minutes Spent Total Time Spent with Patient: Total time spent is greater than 50% in coordination of care (as documented) at patient's floor/unit and/or counseling patient: Coding Level of Care Code 62564 SUB INP/OBS CARE 3/50MIN Diagnoses Left lower lobe pneumonia J18.9 Pneumonia type: due to unspecified organism Anemia D64.9 Anemia type: unspecified type Type 2 diabetes mellitus E11.9 (1) Left lower lobe pneumonia Pneumonia type: due to unspecified organism Qualified Code(s): J18.9 - Pneumonia, unspecified organism (2) Anemia Anemia type: unspecified type Qualified Code(s): D64.9 - Anemia, unspecified
[2024-08-26] MEDS: AZITHROMYCIN 250 MG TAB PO SCH (09:06)
[2024-08-26] MEDS: IRON SUCROSE 300 MG in SODIUM CHLORIDE 0.9% 250 ML IV ONE (09:07)
[2024-08-26 09:17] LABS: Anisocytosis Present; Poikilocytosis Present; Polychromasia 1+
[2024-08-26] MEDS: NORETHINDRONE 5 MG TAB PO STA (12:07)
[2024-08-26] MEDS: COUGH DROP (SUGAR FREE) LOZ 24 LOZ/1 BOX BUCCAL PRN (17:53)
[2024-08-26] MEDS: metFORMIN HCL ER 500 MG TABCR PO SCH (20:51)
[2024-08-27] MEDS: NORETHINDRONE 5 MG TAB PO SCH (09:17)
[2024-08-27] MEDS: levoFLOXacin 750 MG TAB PO SCH (11:45)
[2024-08-27 15:51] VITALS: RESP 18; TEMP 97.7; O2SAT 97
[2024-08-27 16:52] VITALS: BP 143/99
--- NOTE | 2024-08-27 17:06 | Discharge Summary ---
Discharge Summary Date of Service August 27, 2024 Principal Dx & Hospital Course #1 = Principal Diagnosis (1) Left lower lobe pneumonia: (2) Anemia: (3) Type 2 diabetes mellitus: Plan This pt is a 44-year-old female with PMH of iron deficiency anemia, T2DM, DUB, and alpha thalassemia. She presented via EMS on 08/24 for fever, chills, SOB, and muscle soreness x 1.5 week. Patient reports that her symptoms started shortly after she received a blood and iron transfusion 2 weeks ago. Approximately 2 days after the infusion, she developed flulike symptoms which included productive cough, chills, and fevers at home. She endorses SOB when she walks upstairs, or whenever she develops coughing fits. Found to have a lobar PNA on chest xray and CTA Chest. Requiring 2LNC on admission and now weaned off. #Left lower lobe pneumonia/Hypoxia-with community acquired PNA but has DMII so was placed on Cefepime for Gram neg coverage.. Chest CTA did not reveal pulmonary embolism, but did reveal dense LLL pneumonia Leukocytosis improving. Hypoxia now resolved, remains with OLIVERA. Blood cultures negative to date, sputum cx collected and pending. - Cefepime azithro while here will dc on levaquin 750 mg -dc Vanco as MRSA swab neg and not high risk for MRSA -will need repeat chest CT in 3 months to ensure resolution of PNA #Iron deficiency anemia/DUB/Alpha thalassemia-Hgb 8.5 on arrival; stable today.MCV low at 78. Patient received IV iron 2 weeks ago and recently had heavy vaginal bleeding which is now stopped after taking TXA and norethindrone. No signs of active bleed on clinical exam; patient denies blood in her urine/stool -give Venofer 300mg IV x 1 #P9FA-Nute A1c at 7.8% on 06/03/2023 and now only 6.7%. She is declining SSI here but encouraged her to take it if glucose>200. On metformin at home -resume metformin -pt requests regular diet-changed VTE PPx: SCDs Notes For Next Care Provider this is a very dense pneumonia, will encourge a follow up CT Admission HPI Per Admitting Provider Sacha is a 44-year-old female with PMH of iron deficiency anemia, T2DM, DUB, and alpha thalassemia. She presented via EMS on 08/24 for fever, chills, SOB, and muscle soreness x 1.5 week. Patient reports that her symptoms started shortly after she received a blood and iron transfusion 2 weeks ago. Approximately 2 days after the infusion, she developed flulike symptoms which included productive cough, chills, and fevers at home. She endorses SOB when she walks upstairs, or whenever she develops coughing fits. Patient has been around a lot of sick contacts recently, she works at a [employer]. She has been taking Mucinex at home for her symptoms. She does not normally require supplemental oxygen at baseline; no CPAP at night. Additionally, patient does have a history of NATTY and alpha thalassemia, and she was having abnormal uterine bleeding from around July 08 to approximately last week. She takes control to stop the bleeding. Patient denies smoking, tobacco use, recent alcohol use. Patient is tachycardic at 107 bpm at time of admission; vitals otherwise stable. ED course: Zosyn 4.5 g IV NSS 1000 mL IV x 2 ROS: Patient endorses fever, chills, headache, hemoptysis, productive cough (yellow sputum production), pleuritic CP mainly on the left side, occasional left shoulder pain (stabbing pain that radiates up from her left rib cage), and abdominal cramping from coughing so much. Patient denies chest pain at present, N/V/D, changes in urinary or bowel habits, blood in her urine, bright red blood in her stool, or melena (note patient does take iron tablets, but does not believe she has had any dark stool recently). Discharge Exam decreased breath sounds left base, otherwise clear did examine sacrum, no skin changes Discharge Plan Discharge Items Patient Disposition: Home - Self-Care Reason For Visit: LLL PNA Discharge Diagnosis: left lower lung pneumonia history of alpha thalassemia and anemia Activity: Per Instructions section Activity Comment: slowly increase activity Non-emergency contact: Primary Care Provider Call non-emergency contact if: your symptoms worsen Follow-up/Referrals: Amirah Vaughan DO [Primary Care Provider] - Diet: Carb Consistent or DM2 Addtl Attending Provider Instructions: Pneumonia is an infection of the lungs. Most cases are caused by infections from bacteria or viruses. Pneumonia may be mild or very severe. If it is caused by bacteria, you will be treated with antibiotics. It may take a few weeks to a few months to recover fully from pneumonia, depending on how sick you were and whether your overall health is good. Follow-up care is a chavarria part of your treatment and safety.Be sure to make and go to all appointments, and call your doctor or nurse advice line if you are having problems. It's also a good idea to know your test results and keep a list of the medicines you take. How can you care for yourself at home? Take your antibiotics exactly as directed. Do not stop taking the medicine just because you are feeling better. You need to take the full course of antibiotics. Take your medicines exactly as prescribed. Call your doctor or nurse advice line if you think you are having a problem with your medicine.Get plenty of rest and sleep. You may feel weak and tired for a while, but your energy level will improve with time.To prevent dehydration, drink plenty of fluids. Choose water and other clear liquids. If you have kidney, heart, or liver disease and have to limit fluids, talk with your doctor before you increase the amount of fluids you drink.Take care of your cough so you can rest. A cough that brings up mucus from your lungs is common with pneumonia. It is one way your body gets rid of the infection. But if coughing keeps you from resting or causes severe fatigue and chest-wall pain, talk to your doctor. Your doctor may suggest that you take a medicine to reduce the cough.Use a vaporizer or humidifier to add moisture to your bedroom. Follow the directions for cleaning the machine.Do not smoke or allow others to smoke around you. Smoke will make your cough last longer. If you need help quitting, talk to your doctor about stop-smoking programs and medicines. These can increase your chances of quitting for good.Take an nedt-les-eazitbr pain medicine, such as acetaminophen (Tylenol), ibuprofen (Advil, Motrin), or naproxen (Aleve). Read and follow all instructions on the label.Do not take two or more pain medicines at the same time unless the doctor told you to. Many pain medicines have acetaminophen, which is Tylenol. Too much acetaminophen (Tylenol) can be harmful.If you were given a spirometer to measure how well your lungs are working, use it as instructed. This can help your doctor tell how your recovery is going. How can you prevent pneumonia or avoid getting it again? To help prevent pneumonia, get the recommended pneumococcal vaccines and a yearly influenza (flu) vaccine. And stay up to date on your COVID-19 vaccines. Wash your hands often to prevent spreading viruses and bacteria that may cause pneumonia. Taking care of your teeth and gums may help prevent some types of pneumonia. When should you call for help? [id number] you think you may need emergency care. For example, call if: You have severe trouble breathing. Call your doctor or nurse advice line nowor seek immediate medical care if: You cough up dark brown or bloody mucus (sputum).You have new or worse trouble breathing.You are dizzy or light-headed, or you feel like you may faint. Watch closely for changes in your health, and be sure to contact your doctor or nurse advice line if: You have a new or higher fever.You are coughing more deeply or more often.You are not getting better after 2 days (48 hours).You do not get better as expected. Addtl Postal Superintendent Provider Instructions: Please finish all of your antibiotics Discuss with you primary care about a repeat CT scan of your chest to assure complete healing in the near future Pending Studies at Discharge: No Stand-Alone Forms: My [facility] CardFlight, Smoking Cessation Medications and DC Order Prescriptions: New levofloxacin 750 mg tablet 750 mg PO DAILY 7 Days Qty: 7 0RF Continued (DME) Dexcom G6 Change House Attendant Misc See Rx Instructions .Route Qty: 1 0RF Rx Instructions: As directed (DME) Dexcom G6 Transmitter Device See Rx Instructions .Route Qty: 1 0RF Rx Instructions: As directed (DME) Dexcom G6 Sensor Device See Rx Instructions .Route Qty: 3 0RF Rx Instructions: As directed metformin 500 mg tablet extended release 24 hr 1,000 mg PO BID Qty: 180 0RF Vitron-C 65 mg iron- 125 mg Tablet,Delayed Release (Dr/Ec) 1 tab PO DAILY norethindrone (contraceptive) 5 mg 10 mg PO DAILY Discharge Orders: Discharge Order (Routine); Ordered 08/27/24 Ordered By: Ti Nation Admission Data Admit Date/Time: 08/24/24 17:16 Attending Provider: [place] Admit Provider: Cody Cordoba Primary Care Provider: Amirah Vaughan Other Providers: Cody Cordoba Other Interventions: Discharge Summary Assessment (RN) Last Done: 08/27/24 16:51 Hospital Stay Data Consultations 08/24/24 15:45 ED Decision to Admit Stat Diagnostic Imagining Performed 08/24/24 14:39 CT angio chest PE protocol Stat Pending Results Patient Have Any Pending Studies at Discharge: No Discharge Instructions Given to Patient (Per Discharging Provider) Pneumonia is an infection of the lungs. Most cases are caused by infections from bacteria or viruses. Pneumonia may be mild or very severe. If it is caused by bacteria, you will be treated with antibiotics. It may take a few weeks to a few months to recover fully from pneumonia, depending on how sick you were and whether your overall health is good. Follow-up care is a chavarria part of your treatment and safety.Be sure to make and go to all appointments, and call your doctor or nurse advice line if you are having problems. It's also a good idea to know your test results and keep a list of the medicines you take. How can you care for yourself at home? Take your antibiotics exactly as directed. Do not stop taking the medicine just because you are feeling better. You need to take the full course of antibiotics.Take your medicines exactly as prescribed. Call your doctor or nurse advice line if you think you are having a problem with your medicine.Get plenty of rest and sleep. You may feel weak and tired for a while, but your energy level will improve with time.To prevent dehydration, drink plenty of fluids. Choose water and other clear liquids. If you have kidney, heart, or liver disease and have to limit fluids, talk with your doctor before you increase the amount of fluids you drink.Take care of your cough so you can rest. A cough that brings up mucus from your lungs is common with pneumonia. It is one way your body gets rid of the infection. But if coughing keeps you from resting or causes severe fatigue and chest-wall pain, talk to your doctor. Your doctor may suggest that you take a medicine to reduce the cough.Use a vaporizer or humidifier to add moisture to your bedroom. Follow the directions for cleaning the machine.Do not smoke or allow others to smoke around you. Smoke will make your cough last longer. If you need help quitting, talk to your doctor about stop-smoking programs and medicines. These can increase your chances of quitting for good.Take an injc-edc-toxbbwz pain medicine, such as acetaminophen (Tylenol), ibuprofen (Advil, Motrin), or naproxen (Aleve). Read and follow all instructions on the label.Do not take two or more pain medicines at the same time unless the doctor told you to. Many pain medicines have acetaminophen, which is Tylenol. Too much acetaminophen (Tylenol) can be harmful.If you were given a spirometer to measure how well your lungs are working, use it as instructed. This can help your doctor tell how your recovery is going. How can you prevent pneumonia or avoid getting it again? To help prevent pneumonia, get the recommended pneumococcal vaccines and a yearly influenza (flu) vaccine. And stay up to date on your COVID-19 vaccines. Wash your hands often to prevent spreading viruses and bacteria that may cause pneumonia. Taking care of your teeth and gums may help prevent some types of pneumonia. When should you call for help? [id number] you think you may need emergency care. For example, call if: You have severe trouble breathing. Call your doctor or nurse advice line nowor seek immediate medical care if: You cough up dark brown or bloody mucus (sputum).You have new or worse trouble breathing.You are dizzy or light-headed, or you feel like you may faint. Watch closely for changes in your health, and be sure to contact your doctor or nurse advice line if: You have a new or higher fever.You are coughing more deeply or more often.You are not getting better after 2 days (48 hours).You do not get better as expected. Total Time Total Time Spent Total Time Spent (In Minutes): It required greater than 30 minutes to prepare this patient for discharge. Coding Level of Care Code 00487 INP/OBS DISCH >30 MIN Diagnoses Left lower lobe pneumonia J18.9 Pneumonia type: due to unspecified organism Anemia D64.9 Anemia type: unspecified type Type 2 diabetes mellitus E11.9
[2024-08-27 17:27] VITALS: PULSE 93
--- NOTE | 2024-08-29 07:53 | Coding Query ---
CODING QUERY To promote full compliance with coding requirements relating to patient care, provider participation is requested in all cases of chief meteorologist uncertainty. Please assist us with the question(s) below: Coding Question(s): Pt admitted with dense pneumonia. 08/26 progress note :" Pt with community acquired pneumonia ,DM2, placed on Cefepime for gram negative coverage. Please document, if known or suspected, the specific type of pneumonia that was treated during this inpatient stay. Thank you! Dion Gonzalez [facility] Physician's Response(s): community acquired pneumonia Principal Diagnosis: "that condition established after study, to be chiefly responsible for occasioning the admission of the patient to the hospital for care." Co-Existing Principal Diagnosis: "when two or more diagnoses equally meet the criteria for principal diagnosis as determined by the circumstances of admission, diagnostic work up, and/or therapy provided, and the Alphabetic Index, Tabular List, or another coding guideline does not provide sequencing direction, any one of the diagnoses may be sequenced first." "When the physician has documented what appears to be a current diagnosis in the body of the record, but has not included the diagnosis in the final diagnostic statement, the physician should be asked whether the diagnosis should be added." (Source Coding Clinic 2 QTR90. p3-4) MARGARETH
== END 2024-08-27 20:40 | disposition home or self-care (01) | DRG 195 ==
LOC: ED 11:45 → SUATTDRO 17:16 → EDINP 17:16 → 4W 20:11